=== PATIENT | female | born 1970 | race Caucasian/White ===

== ENCOUNTER 2021-01-31 23:29 | Emergency (ER) | payer OTHER ==
[2021-02-01 01:16] LABS: Absolute Lymphocytes (CBC) 4.1 K/uL (0.7-4.9); Basophils % 1.2 % (0-1.3); Hematocrit 38.6 % (36.0-45.0); RBC Red Blood Cell Count 4.45 M/uL (3.86-4.86)
[2021-02-01] MEDS ORDERED: LORazepam 2 MG/ML VIAL ONE (01:52)
[2021-02-01 01:58] LABS: Protime INR 0.96
[2021-02-01 02:16] LABS: ALT/SGPT 18 U/L (12-78); AST/SGOT 9 U/L (15-37); Albumin 3.7 g/dL (3.4-5.0); Alkaline Phosphatase 58 U/L (45-117); BUN Blood Urea Nitrogen 16 mg/dL (7-18); Bicarbonate 30 mmol/L (21-32); Bilirubin Direct < 0.1 mg/dL (0-0.2); Bilirubin Total 0.3 mg/dL (0.2-1.0); Glucose Level 108 mg/dL (74-106); Magnesium 1.9 mg/dL (1.8-2.4); NT PRO-BNP 21 pg/mL (<125); Potassium 4.2 mmol/L (3.5-5.1); Protein, Total 7.9 g/dL (6.4-8.2); Sodium Level 140 mmol/L (136-145); Troponin (Emerg Dept Use Only) < 0.02 ng/mL (0.0-0.045)
[2021-02-01] MEDS ORDERED: ACETAMINOPHEN 325 MG TABLET ONE (03:16)
--- NOTE | 2021-02-01 03:55 | EDPHYS ---
Physician Documentation [facility] Name: Carmencita Jacob Age: 50 yrs Sex: Female : 1970 Arrival Date: 01/31/2021 Time: 23:39 Bed 2 Private MD: ED Physician Charbel Francisco HPI: 02/01 00:36 This 50 yrs old Female presents to ER via Ambulatory with complaints of ma2 TINGLING IN HANDS AND RIGHT FOOT, Leg Pain, Chest Pressure. 00:36 The patient presents with pain. Onset: The symptoms/episode began/occurred gradually, 2 ma2 day(s) ago. Associated signs and symptoms: Pertinent negatives nausea, tingling, vomiting, warmth. Severity of symptoms: At their worst the symptoms were moderate, in the emergency department the symptoms are unchanged. The patient has not experienced similar symptoms in the past. 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 - Social history:: Smoking status: Patient denies any tobacco usage or history of. Patient/guardian denies using alcohol, street drugs, The patient lives with family. - Family history:: not pertinent. ROS: 02/01 00:36 Constitutional: Negative for fever, chills, and weight loss. ma2 All other systems are negative. Exam: 00:36 Constitutional: This is a well developed, well nourished patient who is awake, alert, ma2 and in no acute distress. Head/Face: Normocephalic, atraumatic. Eyes: Pupils equal round and reactive to light, extra-ocular motions intact. Lids and lashes normal. Conjunctiva and sclera are non-icteric and not injected. Cornea within normal limits. Periorbital areas with no swelling, redness, or edema. ENT: Nares patent. No nasal discharge, no septal abnormalities noted. Tympanic membranes are normal and external auditory canals are clear. Oropharynx with no redness, swelling, or masses, exudates, or evidence of obstruction, uvula midline. Mucous membranes moist. Neck: Trachea midline, no thyromegaly or masses palpated, and no cervical lymphadenopathy. Supple, full range of motion without nuchal rigidity, or vertebral point tenderness. No Meningismus. Chest/axilla: Normal chest wall appearance and motion. Nontender with no deformity. No lesions are appreciated. Cardiovascular: Regular rate and rhythm with a normal S1 and S2. No gallops, murmurs, or rubs. Normal PMI, no JVD. No pulse deficits. Respiratory: Lungs have equal breath sounds bilaterally, clear to auscultation and percussion. No rales, rhonchi or wheezes noted. No increased work of breathing, no retractions or nasal flaring. Abdomen/GI: Soft, non-tender, with normal bowel sounds. No distension or tympany. No guarding or rebound. No evidence of tenderness throughout. Back: No spinal tenderness. No costovertebral tenderness. Full range of motion. Skin: Warm, dry with normal turgor. Normal color with no rashes, no lesions, and no evidence of cellulitis. MS/ Extremity: Pulses equal, no cyanosis. Neurovascular intact. Full, normal range of motion. Neuro: Awake and alert, GCS 15, oriented to person, place, time, and situation. Cranial nerves II-XII grossly intact. Motor strength 5/5 in all extremities. Sensory grossly intact. Cerebellar exam normal. Normal gait. 00:36 Musculoskeletal/extremity: Extremities: all appear grossly normal, with no appreciated pain with palpation, ROM: intact in all extremities, Circulation is intact in all extremities. Compartment Syndrome exam of affected extremity: is normal. no pain, no numbness, no tingling, no sensation deficit, DVT Exam: No signs of deep vein thrombosis. no pain, no swelling, no tenderness, no appreciated bluish discoloration, Calves: are non-tender. Vital Signs: 01/31 23:47 BP 144 / 97; Pulse 99; Resp 18; Temp 97.5; Pulse Ox 100% on R/A; Weight 86.18 kg; em Height 5 ft. 6 in. (167.64 cm); 02/01 01:21 BP 122 / 81; Pulse 63; Resp 18; Pulse Ox 99% on R/A; Pain 0/10; df1 02:58 BP 115 / 71; Pulse 72; Resp 18; Pulse Ox 97% on R/A; df1 01/31 23:47 Body Mass Index 30.67 (86.18 kg, 167.64 cm) em MDM: 01/31 23:53 Patient medically screened. [facility] 02/01 00:36 Differential diagnosis: dislocation, contusion, abrasion, tendonitis. [facility] 03:54 Data reviewed: vital signs, nurses notes. Counseling: I had a detailed discussion with [facility] the patient and/or guardian regarding: the historical points, exam findings, and any diagnostic results supporting the discharge/admit diagnosis, the presence of at least one elevated blood pressure reading (>120/80) during this emergency department visit, the need for outpatient follow up. Response to treatment: the patient's symptoms have markedly improved after treatment. ED course: ct shows ?early pneumonia however patient has no cough or fever will continue to watch . 01/31 23:54 Order name: Basic Metabolic Panel [facility] 01/31 23:54 Order name: CBC with Diff; Complete Time: 02:16 [facility] 01/31 23:54 Order name: LFT's; Complete Time: 02:47 [facility] 01/31 23:54 Order name: Magnesium; Complete Time: 02:47 [facility] 01/31 23:54 Order name: NT PRO-BNP; Complete Time: 02:47 [facility] 01/31 23:54 Order name: PT-INR; Complete Time: 02:16 [facility] 01/31 23:54 Order name: Troponin (emerg Dept Use Only); Complete Time: 02:47 [facility] 01/31 23:54 Order name: XRAY Chest (1 view) [facility] 01/31 23:54 Order name: EKG; Complete Time: 23:55 [facility] 01/31 23:54 Order name: Extremity Venous Uni Ltd US [facility] 01/31 23:54 Order name: CT Chest For PE Angio [facility] 01/31 23:54 Order name: Basic Metabolic Panel; Complete Time: 02:47 [facility] 01/31 23:54 Order name: Cardiac monitoring; Complete Time: 01:19 [facility] 01/31 23:54 Order name: EKG - Nurse/Tech; Complete Time: 00:29 [facility] 01/31 23:54 Order name: IV Saline Lock; Complete Time: 01:19 ma2 01/31 23:54 Order name: Labs collected and sent; Complete Time: : ma2 01/31 23:54 Order name: O2 Per Protocol; Complete Time: ma2 01/31 23:54 Order name: O2 Sat Monitoring; Complete Time: : ma2 Administered Medications: 01:18 Drug: Ativan (LORazepam) 1 mg Route: IVP; Site: right antecubital; df1 02:24 Drug: Tylenol 650 mg Route: PO; df1 Disposition Summary: 02/01/21 03:55 Discharge Ordered Location: Home ma2 Condition: Stable ma2 Diagnosis - Pain in right leg ma2 Followup: ma2 - With: Private Physician - When: Tomorrow - Reason: Continuance of care Discharge Instructions: - Discharge Summary Sheet ma2 - Pain Without a Known Cause ma2 Forms: - Medication Reconciliation Form ma2 - Thank You Letter ma2 - Antibiotic Education ma2 - Prescription Opioid Use ma2 Prescriptions: - Diclofenac Sodium 75 mg Oral Tablet Sustained Release - take 1 tablet by ORAL route 2 times per day; 30 tablet; Refills: 0, Product ma2 Selection Permitted Signatures: Dispatcher [employer] Connor Bear RN RN Charbel Miller MD MD ma2 Melany Craig df1
--- NOTE | 2021-02-01 03:55 | ER ---
Nurse's Notes [facility] Name: Carmencita Jacob Age: 50 yrs Sex: Female : 1970 Arrival Date: 01/31/2021 Time: 23:39 Bed 2 Private MD: Diagnosis: Pain in right leg Presentation: 01/31 23:47 Chief complaint: Patient states: right leg pain that started about 1.5 weeks ago, also em reports shortness of breath and chest heaviness that started last night. Coronavirus screen: Coronavirus screen: Vaccine status: Patient reports receiving the 1st dose of the Covid vaccine. Ebola Screen: Patient negative for fever greater than or equal to 101.5 degrees Fahrenheit, and additional compatible Ebola Virus Disease symptoms Patient denies exposure to infectious person. Patient denies travel to an Ebola-affected area in the 21 days before illness onset. No symptoms or risks identified at this time. Initial Sepsis Screen: Does the patient meet any 2 criteria? No. Patient's initial sepsis screen is negative. Does the patient have a suspected source of infection? No. Patient's initial sepsis screen is negative. Risk Assessment: Do you want to hurt yourself or someone else? Patient reports no desire to harm self or others. Onset of symptoms was January 31, 2021. 23:47 Method Of Arrival: Ambulatory em 23:47 Acuity: TOSHIA 3 em Triage Assessment: 02/01 01:19 General: Appears in no apparent distress. Behavior is calm, cooperative. Pain: Denies df1 pain. Cardiovascular: No deficits noted. Heart tones present Rhythm is regular Chest pain is denied. Respiratory: Airway is patent Trachea midline Respiratory effort is even, unlabored, Respiratory pattern is regular, symmetrical. 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 - Social history:: Smoking status: Patient denies any tobacco usage or history of. Patient/guardian denies using alcohol, street drugs, The patient lives with family. - Family history:: not pertinent. Screenin/02 01:19 Abuse screen: Denies threats or abuse. Nutritional screening: No deficits noted. df1 Tuberculosis screening: No symptoms or risk factors identified. Fall Risk None identified. Assessment: 01:20 Pain: Pain does not radiate. Pain began gradually. df1 03:01 General: Appears in no apparent distress. uncomfortable, Behavior is calm, cooperative. df1 Neuro: No deficits noted. Neuro: Reports tingling in bilateral hands and feet. Cardiovascular: No deficits noted. Respiratory: No deficits noted. GI: No deficits noted. : No deficits noted. EENT: No deficits noted. Vital Signs: 01/31 23:47 BP 144 / 97; Pulse 99; Resp 18; Temp 97.5; Pulse Ox 100% on R/A; Weight 86.18 kg; em Height 5 ft. 6 in. (167.64 cm); 02/01 01:21 BP 122 / 81; Pulse 63; Resp 18; Pulse Ox 99% on R/A; Pain 0/10; df1 02:58 BP 115 / 71; Pulse 72; Resp 18; Pulse Ox 97% on R/A; df1 01/31 23:47 Body Mass Index 30.67 (86.18 kg, 167.64 cm) em ED Course: 01/31 23:39 Patient arrived in ED. ja2 23:49 Triage completed. em 23:49 Arm band placed on. em 23:53 Charbel Francisco MD is Attending Physician. ma2 02/01 00:14 Melany Craig is Primary Nurse. df1 00:39 Extremity Venous Uni Ltd US In Process Unspecified. EDMS 00:46 XRAY Chest (1 view) In Process Unspecified. EDMS 01:18 Basic Metabolic Panel Sent. df1 01:18 Basic Metabolic Panel Sent. df1 01:19 No provider procedures requiring assistance completed. Inserted saline lock: 20 gauge df1 in right antecubital area, using aseptic technique. Patient maintains SpO2 saturation greater than 95% on room air. 01:21 Patient has correct armband on for positive identification. Placed in gown. Bed in low df1 position. Call light in reach. Side rails up X 1. athletic monitor on. Pulse ox on. NIBP on. 02:39 CT Chest For PE Angio In Process Unspecified. EDMS 04:18 IV discontinued, intact, bleeding controlled, No redness/swelling at site. Pressure df1 dressing applied. Administered Medications: 01:18 Drug: Ativan (LORazepam) 1 mg Route: IVP; Site: right antecubital; df1 02:24 Drug: Tylenol 650 mg Route: PO; df1 Outcome: 03:55 Discharge ordered by . maLeny 04:18 Condition: stable df1 04:18 Discharge instructions given to patient, Instructed on discharge instructions, follow up and referral plans. medication usage, Demonstrated understanding of instructions, follow-up care, medications, Prescriptions given X 1. 04:19 Discharged to home ambulatory. df1 04:19 Patient left the ED. df1 Signatures: Dispatcher [employer] Connor Bear, RN RN Charbel Millre MD MD ma2 Laura Chacon Dawn df1
[2021-02-01 04:23] VITALS: TEMP 97.5
[2021-02-01 04:26] VITALS: BP 115/71; O2SAT 97
--- NOTE | 2021-02-01 07:19 | RAD REPORT ---
EXAM DESCRIPTION: RAD - Chest Single View - 02/01/2021 12:46 am CLINICAL HISTORY: CONGESTION COMPARISON: Chest For Pe Angio dated 02/01/2021 FINDINGS: Lines: None. Lungs: No evidence of edema or pneumonia. Pleural: No significant pleural effusions or pneumothorax. Cardiac: The heart size is within normal limits. Bones: No acute fractures. Other: IMPRESSION: No acute cardiopulmonary disease.
--- NOTE | 2021-02-01 07:19 | RAD REPORT ---
EXAM DESCRIPTION: US - Extremity Venous Uni Ltd - 02/01/2021 12:39 am CLINICAL HISTORY: Pain and numbness COMPARISON: None. TECHNIQUE: Real-time sonographic evaluation of the right lower extremity deep venous system was perf ormed. FINDINGS: Normal compressibility, flow augmentation, phasic flow and spontaneous flow is identified in the right lower extremity deep venous system. No intraluminal filling defects seen. IMPRESSION: No DVT in the right lower extremity.
--- NOTE | 2021-02-01 10:56 | RAD REPORT ---
EXAM DESCRIPTION: CT - Chest For Pe Angio - 02/01/2021 5:29 am CLINICAL HISTORY: 50 years Female Congestion; Chest pain COMPARISON: None TECHNIQUE: Axial CT angiography of the chest was performed with multiplanar reformation and 3D and M IP reconstruction. This exam was performed according to our departmental dose-optimization program, w hich includes automated exposure control, adjustment of the mA and/or kV according to patient size an d/or use of iterative reconstruction technique. FINDINGS: Pulmonary arteries: No evidence of pulmonary embolism. Aorta: No evidence of aortic dissection or aneurysm. Mediastinum: Unremarkable. No adenopathy. Heart: Heart is normal in size. No pericardial effusion. Lungs / airways: Patchy right upper lobe groundglass opacities. No consolidation. Airways are patent. Pleura: No significant pleural effusion. No pneumothorax. Osseous: Unremarkable. Soft tissues: Bilateral breast implants. Visualized upper abdomen: Unremarkable. IMPRESSION: 1. No evidence of pulmonary embolism. 2. Patchy right upper lobe groundglass opacities. Imaging features can be seen with (COVID-19 or vi ral) pneumonia, though are nonspecific and can occur with a variety of infectious and noninfectious p rocesses. Electronically signed by: Faraz Horton MD 02/01/2021 3:21 AM CDT Due to temporary technical issues with the PACS/Fluency reporting system, reports are being signed by the in house radiologist without review as a courtesy to ensure prompt reporting. The interpreting r adiologist is fully responsible for the content of the report.
--- NOTE | 2021-02-01 11:47 | EKG ---
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
== END 2021-02-01 04:19 | disposition home or self-care (01) ==
LOC: EDBD 23:29 → ER 23:29
DX: M79.604 Pain in right leg (principal); F41.9 Anxiety disorder, unspecified; Z88.0 Allergy status to penicillin; Z88.8 Allergy status to other drugs, medicaments and biological substances
CPT/HCPCS: 93005; 85025; 80048; 36415; 83735; 85610; 80076; 84484; 83880; 71275; 71045; 93971; 96374; 99285; Q9967